=== PATIENT | male | born 1995 | race Caucasian/White ===

== ENCOUNTER 2019-04-11 20:01 | Emergency (ER) | payer MEDICAID ==
[~2019-04-11] VITALS: Ht 165.1 cm; Wt 72.6 kg
[2019-04-11 20:13] VITALS: BP_SYST 149
[2019-04-11] MEDS ORDERED: LIDOCAINE 1% 10 MG/ML, 20 ML MDV INJ ONE (23:15)
[2019-04-11] MEDS ORDERED: cefTRIAXone 1 GM VIAL IM ONE (23:15)
[2019-04-11] MEDS ORDERED: DIPH-TET-PERTUS Vaccine 0.5 ML VIAL (ADACEL) I.M. ONE (23:15)
[2019-04-11 23:59] VITALS: BP_SYST 149
== END 2019-04-11 23:59 | disposition home or self-care (01) ==
LOC: SED 20:01
DX: L02.416 Cutaneous abscess of left lower limb (principal); R03.0 Elevated blood-pressure reading, without diagnosis of hypertension
CPT/HCPCS: 87070; 87075; 96372; 99283; J0696; J2001